=== PATIENT | male | born 1950 | race Caucasian/White ===

== ENCOUNTER 2021-05-24 06:51 | Outpatient (CLI) | payer MEDICARE, BC ==
[2021-05-24] MEDS ORDERED: Magnevist 469MG/ML 20 ML VIAL ONE (09:38)
== END 2021-05-24 06:52 | disposition home or self-care (01) ==
LOC: BICMRI 06:51
PROVIDERS: ATTEND Internal Medicine Hematology & Oncology
DX: M25.552 Pain in left hip (principal); M43.17 Spondylolisthesis, lumbosacral region
CPT/HCPCS: 72197; A9579